=== PATIENT | male | born 1970 | race Caucasian/White ===

== ENCOUNTER 2017-12-18 17:30 | Emergency (ER) | payer MEDICAID ==
[~2017-12-18] VITALS: Ht 170.2 cm; Wt 70.3 kg
[~2017-12-18 17:30] MED LIST: HAL5T PO; LITH300C3 PO; SERT-274 PO
[2017-12-18] MEDS ORDERED: ONDANSETRON ODT 4 MG TAB PO ONE (19:00)
[2017-12-18 19:01] VITALS: BP 146/105
== END 2017-12-18 20:24 | disposition home or self-care (01) ==
LOC: ER 17:30
DX: F15.10 Other stimulant abuse, uncomplicated (principal); E86.0 Dehydration; F11.10 Opioid abuse, uncomplicated; F17.210 Nicotine dependence, cigarettes, uncomplicated; Z59.0 Homelessness
CPT/HCPCS: 99282; Q0162

== ENCOUNTER 2017-12-20 10:42 | Emergency (ER) | payer MEDICAID ==
[~2017-12-20] VITALS: Ht 170.2 cm; Wt 74.8 kg
[2017-12-20 11:12] VITALS: BP 110/86
[2017-12-20 12:09] LABS: Basophils # (auto) 0 uL; Basophils % (auto) 0.3 % (0.0-2.0); Eosinophils # (auto) 0.2 uL; Eosinophils % (auto) 1.7 % (0.0-7.0); Hematocrit 42.9 % (41.0-53.0); Lymphocytes # (auto) 2.5 uL; Lymphocytes % (auto) 28.1 % (10.0-50.0); Mean Corpuscular Volume 94.2 fL (80.0-100.0); Monocytes # (auto) 0.7 uL; Monocytes % (auto) 7.8 % (0.0-12.0); Neutrophils # (auto) 5.6 uL; Neutrophils % (auto) 62.1 % (37.0-80.0); Nucleated Red Blood Cells % 0.5 %; Platelet Count (auto) 274 10^3/uL (140-450); Red Blood Cells 4.56 10^6/uL (4.5-5.90)
[2017-12-20 12:49] LABS: Albumin 4.4 g/dL (3.4-5.0); BUN/Creatinine Ratio 9.7; Bilirubin, Total 1.6 mg/dL (0.2-1.0); Calcium 9.6 mg/dL (8.5-10.1); Total Protein 8.4 g/dL (6.4-8.2)
[2017-12-20 12:54] LABS: Potassium 2.9 mmol/L (3.5-5.1)
[2017-12-20] MEDS ORDERED: POTASSIUM CHL 10% (20 MEQ/15ML) 15ml ORAL SOLN PO ONE (13:00)
[2017-12-20] MEDS ORDERED: PROMETHAZINE HCL 25 MG/ML 1ML IM ONE (13:00)
[2017-12-20] MEDS ORDERED: POTASSIUM CHL 20 Meq TABLET PO ONE (14:15)
== END 2017-12-20 14:36 | disposition home or self-care (01) ==
LOC: ER 10:42
DX: F11.10 Opioid abuse, uncomplicated (principal); E87.6 Hypokalemia; F10.10 Alcohol abuse, uncomplicated; R74.8 Abnormal levels of other serum enzymes; F17.210 Nicotine dependence, cigarettes, uncomplicated; K52.9 Noninfective gastroenteritis and colitis, unspecified; Z59.0 Homelessness; Z79.899 Other long term (current) drug therapy; Z90.49 Acquired absence of other specified parts of digestive tract
CPT/HCPCS: 36415; 74176; 80053; 85025; 93005; 96372; 99285; J2550

== ENCOUNTER 2017-12-26 17:27 | Emergency (ER) | payer MEDICAID ==
[~2017-12-26] VITALS: Ht 170.2 cm; Wt 74.4 kg
[2017-12-26 17:41] VITALS: BP 144/75
[2017-12-26 18:16] LABS: Basophils # (auto) 0.1 uL; Basophils % (auto) 0.7 % (0.0-2.0); Eosinophils # (auto) 0.1 uL; Eosinophils % (auto) 1.2 % (0.0-7.0); Hematocrit 40.9 % (41.0-53.0); Lymphocytes # (auto) 1.2 uL; Lymphocytes % (auto) 13.6 % (10.0-50.0); Mean Corpuscular Hemoglobin 32.8 pg (28.0-32.0); Mean Corpuscular Hgb Conc. 34.3 g/dL (32.0-36.0); Mean Corpuscular Volume 95.4 fL (80.0-100.0); Monocytes # (auto) 0.6 uL; Monocytes % (auto) 6.5 % (0.0-12.0); Neutrophils # (auto) 7.2 uL; Nucleated Red Blood Cells % 0.1 %; Platelet Count (auto) 313 10^3/uL (140-450); Red Blood Cells 4.29 10^6/uL (4.5-5.90); Red Cell Distribution Width 13.2 % (11.8-14.3); White Blood Cell 9.2 10^3/uL (4.4-10.8)
[2017-12-26 18:33] LABS: Albumin 3.8 g/dL (3.4-5.0); BUN/Creatinine Ratio 10.2; Potassium 3.2 mmol/L (3.5-5.1)
[2017-12-26 18:35] LABS: Bilirubin, Total 0.8 mg/dL (0.2-1.0); Total Protein 7.4 g/dL (6.4-8.2)
[2017-12-26 20:20] LABS: Acetaminophen < 2.0 ug/mL (10-30); Salicylate 1.8 mg/dL (2.8-20.0)
[2017-12-26 21:00] LABS: Alcohol, Urine < 3.0 mg/dL (0-5); Amphetamine Screen, Urine POSITIVE (NEGATIVE); Barbiturate Scree,Urine NEGATIVE (NEGATIVE); Benzodiazephine Screen, Urine NEGATIVE (NEGATIVE); Cannabinoid Screen, Urine POSITIVE (NEGATIVE); Cocaine Screen, Urine NEGATIVE (NEGATIVE); Opiate Scree,Urine NEGATIVE (NEGATIVE); Phencyclidine Screen, Urine NEGATIVE (NEGATIVE)
[2017-12-26 21:04] LABS: Urine Bacteria NONE SEEN /hpf (None Seen); Urine Blood Negative /uL (Negative); Urine Specific Gravity 1.026 (1.001-1.035); Urine WBC 2 /hpf (0 - 3)
== END 2017-12-27 15:31 | disposition left against medical advice (07) ==
LOC: ER 17:28
DX: R45.851 Suicidal ideations (principal); F32.9 Major depressive disorder, single episode, unspecified; F12.10 Cannabis abuse, uncomplicated; F15.10 Other stimulant abuse, uncomplicated; F11.10 Opioid abuse, uncomplicated; F41.9 Anxiety disorder, unspecified; F20.9 Schizophrenia, unspecified; F17.210 Nicotine dependence, cigarettes, uncomplicated; Z59.0 Homelessness
CPT/HCPCS: 36415; 80053; 80307; 80329; 81001; 85025

== ENCOUNTER → 2018-02-02 | Emergency (ER) | payer MEDICAID | END | disposition left against medical advice (07) | LOC: ER 19:01 | DX: H91.90 Unspecified hearing loss, unspecified ear (principal); Z53.21 Procedure and treatment not carried out due to patient leaving prior to being seen by health care provider ==

== ENCOUNTER 2018-09-20 15:57 | Emergency (ER) | payer MEDICAID ==
[~2018-09-20] VITALS: Ht 177.8 cm; Wt 72.6 kg
[2018-09-20 16:23] VITALS: BP 112/76
[2018-09-20 17:18] LABS: Basophils # (auto) 0 uL; Basophils % (auto) 0.5 % (0.0-2.0); Eosinophils # (auto) 0.2 uL; Hematocrit 41.5 % (41.0-53.0); Hemoglobin 14.5 g/dL (13.5-17.5); Lymphocytes # (auto) 2.3 uL; Lymphocytes % (auto) 30.2 % (10.0-50.0); Mean Corpuscular Hemoglobin 33.2 pg (28.0-32.0); Mean Corpuscular Hgb Conc. 35.1 g/dL (32.0-36.0); Mean Corpuscular Volume 94.7 fL (80.0-100.0); Monocytes # (auto) 0.8 uL; Monocytes % (auto) 9.9 % (0.0-12.0); Neutrophils # (auto) 4.4 uL; Neutrophils % (auto) 56.4 % (37.0-80.0); Nucleated Red Blood Cells % 0.1 %; Platelet Count (auto) 315 10^3/uL (140-450); Red Blood Cells 4.38 10^6/uL (4.5-5.90); Red Cell Distribution Width 13.6 % (11.8-14.3); White Blood Cell 7.7 10^3/uL (4.4-10.8)
[2018-09-20 17:21] LABS: Albumin 3.9 g/dL (3.4-5.0); Calcium 8.9 mg/dL (8.5-10.1); Potassium 3.7 mmol/L (3.5-5.1)
[2018-09-20 17:26] LABS: BUN/Creatinine Ratio 14.2; Bilirubin, Total 0.5 mg/dL (0.2-1.0); Total Protein 7.9 g/dL (6.4-8.2)
[2018-09-20 20:03] LABS: Salicylate 1.8 mg/dL (2.8-20.0)
[2018-09-20 20:05] LABS: Acetaminophen < 2.0 ug/mL (10-30)
== END 2018-09-20 20:00 | disposition left against medical advice (07) ==
LOC: ER 16:01
DX: R45.851 Suicidal ideations (principal); F31.9 Bipolar disorder, unspecified; F20.9 Schizophrenia, unspecified; F17.210 Nicotine dependence, cigarettes, uncomplicated; F12.10 Cannabis abuse, uncomplicated; F15.10 Other stimulant abuse, uncomplicated; F11.10 Opioid abuse, uncomplicated; Z59.0 Homelessness; Z53.21 Procedure and treatment not carried out due to patient leaving prior to being seen by health care provider
CPT/HCPCS: 36415; 80053; 80320; 80329; 85025

== ENCOUNTER 2019-05-09 20:51 | Emergency (ER) | payer MEDICAID ==
[~2019-05-09] VITALS: Ht 167.6 cm; Wt 72.6 kg
[2019-05-09] MEDS ORDERED: LORazepam 2MG/ML-1ML VIAL IV ONE ×2 (21:30→22:30)
[2019-05-09 22:04] LABS: Basophils # (auto) 0.1 uL; Basophils % (auto) 0.5 % (0.0-2.0); Eosinophils # (auto) 0 uL; Eosinophils % (auto) 0.2 % (0.0-7.0); Hematocrit 37.5 % (41.0-53.0); Hemoglobin 13.2 g/dL (13.5-17.5); Lymphocytes # (auto) 2.4 uL; Lymphocytes % (auto) 24.8 % (10.0-50.0); Mean Corpuscular Hemoglobin 33.1 pg (28.0-32.0); Mean Corpuscular Hgb Conc. 35.1 g/dL (32.0-36.0); Mean Corpuscular Volume 94.4 fL (80.0-100.0); Monocytes # (auto) 0.8 uL; Monocytes % (auto) 8.1 % (0.0-12.0); Neutrophils # (auto) 6.5 uL; Neutrophils % (auto) 66.4 % (37.0-80.0); Platelet Count (auto) 242 10^3/uL (140-450); Red Blood Cells 3.97 10^6/uL (4.5-5.90); Red Cell Distribution Width 13.5 % (11.8-14.3); White Blood Cell 9.7 10^3/uL (4.4-10.8)
[2019-05-09 22:17] LABS: Acetaminophen < 2.0 ug/mL (10-30); Albumin 3.9 g/dL (3.4-5.0); BUN/Creatinine Ratio 16.5; Salicylate < 1.7 mg/dL (2.8-20.0)
[2019-05-09 22:20] LABS: Bilirubin, Total 1.2 mg/dL (0.2-1.0); Total Protein 7.2 g/dL (6.4-8.2)
[2019-05-09 22:27] LABS: Potassium 2.9 mmol/L (3.5-5.1)
[2019-05-09] MEDS ORDERED: HALOPERIDOL LACTATE 5 MG/ML INJ VIAL ONE (22:34)
[2019-05-09] MEDS ORDERED: diphenhdrAMINE HCL 50 MG/1 ML VL ONE (22:34)
[2019-05-09 22:36] LABS: Urine Bacteria NONE SEEN /hpf (None Seen); Urine Blood Negative /uL (Negative); Urine Specific Gravity 1.019 (1.001-1.035); Urine WBC <1 /hpf (0 - 3)
[2019-05-09 22:50] LABS: Alcohol, Urine < 3.0 mg/dL (0-5); Amphetamine Screen, Urine POSITIVE (NEGATIVE); Barbiturate Scree,Urine NEGATIVE (NEGATIVE); Benzodiazephine Screen, Urine NEGATIVE (NEGATIVE); Cannabinoid Screen, Urine POSITIVE (NEGATIVE); Cocaine Screen, Urine NEGATIVE (NEGATIVE); Opiate Scree,Urine NEGATIVE (NEGATIVE); Phencyclidine Screen, Urine NEGATIVE (NEGATIVE)
[2019-05-09] MEDS ORDERED: POTASSIUM CHL 20MEQ/100ML 100 ML IV ONE (23:00)
[2019-05-09] MEDS ORDERED: SODIUM CHLORIDE 0.9% 1,000 ML IV ONE (23:00)
[2019-05-09] MEDS ORDERED: POTASSIUM EFFERVESENT TAB 25 MEQ PO ONE (23:00)
[2019-05-10] MEDS ORDERED: HALOPERIDOL LACTATE 5 MG/ML INJ VIAL IM ONE
[2019-05-10] MEDS ORDERED: SODIUM CHLORIDE 0.9% 1,000 ML IV ONE ×2 (00:15→04:15)
[2019-05-10] MEDS ORDERED: LORazepam 2MG/ML-1ML VIAL IM ONE (18:30)
[2019-05-10] MEDS ORDERED: diphenhdrAMINE HCL 50 MG/1 ML VL IM ONE ×2 (18:30)
[2019-05-10] MEDS ORDERED: QUEtiapine FUMARATE 100 MG TAB PO ONE (18:30)
[2019-05-10] MEDS: QUEtiapine FUMARATE 100 MG TAB PO SCH (23:30)
[2019-05-11] MEDS ORDERED: OLANZapine 5 MG TAB PO ONE (16:45)
[2019-05-11] MEDS: QUEtiapine FUMARATE 100 MG TAB PO SCH (22:23)
[2019-05-12] MEDS: QUEtiapine FUMARATE 100 MG TAB PO SCH (22:24)
[2019-05-13] MEDS ORDERED: FLUoxetine HCL 20 MG CAP PO SCH (10:00)
[2019-05-13] MEDS ORDERED: LORazepam 0.5 MG TAB PO ONE (11:15)
[2019-05-13] MEDS ORDERED: LORazepam 0.5 MG TAB PO PRN ×2 (15:45→16:15)
[2019-05-13] MEDS ORDERED: OLANZapine 5 MG TAB PO ONE (15:45)
[2019-05-13] MEDS ORDERED: FLUoxetine HCL 20 MG CAP ONE (16:16)
[2019-05-13] MEDS: FLUoxetine HCL 20 MG CAP PO SCH (16:20)
[2019-05-13] MEDS: OLANZapine 5 MG TAB PO SCH (21:08)
[2019-05-13] MEDS ORDERED: OLANZapine 5 MG TAB PO SCH (22:00)
[2019-05-14] MEDS ORDERED: OLANZapine 5 MG TAB PO SCH (10:00)
[2019-05-14] MEDS: FLUoxetine HCL 20 MG CAP PO SCH (10:15)
[2019-05-14] MEDS: OLANZapine 5 MG TAB PO SCH ×2 (10:15→22:41)
[2019-05-15] MEDS: FLUoxetine HCL 20 MG CAP PO SCH (11:00)
[2019-05-15] MEDS: OLANZapine 5 MG TAB PO SCH ×2 (11:01→22:18)
--- NOTE | 2019-05-15 19:05 | NUR ---
[facility] s/w Tory no beds [facility] s/w Sujata no beds but packet [place] [facility]w Betty no beds [facility] Sa[facility] s/w Myriam no beds [facility] s/w Shahrzad no beds [facility] s/w Lauren, not able to take due to mile radius
--- NOTE | 2019-05-16 11:07 | NUR ---
[facility] packet [facility] for wait list [facility] s/w Susan no beds [facility] s/w Ray no beds [facility] s/w Shamar, packet fax for review
[2019-05-16] MEDS: FLUoxetine HCL 20 MG CAP PO SCH (12:00)
[2019-05-16] MEDS: OLANZapine 5 MG TAB PO SCH ×2 (12:00→22:08)
[2019-05-17 07:36] VITALS: BP 128/77
== END 2019-05-17 11:51 | disposition left against medical advice (07) ==
LOC: EDBD 20:51 → EDUNIT# 20:58 → ER 20:58
DX: F20.9 Schizophrenia, unspecified (principal); F15.10 Other stimulant abuse, uncomplicated; E87.6 Hypokalemia
CPT/HCPCS: 36415; 80053; 80307; 80329; 81001; 85025; 99284; J1200; J1630; J2060; J3480; J7030